=== PATIENT | female | born 1995 | race American Indian/Alaskan Native ===

== ENCOUNTER 2018-03-01 05:58 | Inpatient (IN) | payer MEDICAID ==
[2018-03-01] MEDS: IBUPROFEN PO SCH ×3 (06:12→21:26)
[2018-03-01] MEDS ORDERED: PITOCin/NS 20 UNIT/1000ML DRIP 20 UNITS/1,000 ML BAG IV SCH (07:00)
[2018-03-01] MEDS ORDERED: METHERGINE IM ONE ×2 (07:12→07:23)
[2018-03-01] MEDS ORDERED: BRETHINE SUB-Q PRN (07:20)
[2018-03-01] MEDS ORDERED: BRETHINE IVP PRN (07:20)
[2018-03-01] MEDS ORDERED: SUBLIMAZE IV PRN (07:20)
[2018-03-01] MEDS ORDERED: LACTATED RINGERS 1,000 ML IV SCH (08:00)
[2018-03-01 08:13] LABS: Hematocrit 29.5 % (30.3-42.9); Hemoglobin 9.7 gm/dl (10.1-14.3); Mean Corpuscular HGB Conc 33 % (30-34); Mean Corpuscular Volume 73 fl (79-97); Platelet Count 361 K/mm3 (140-440); Red Blood Count 4.06 M/mm3 (3.65-5.03)
[2018-03-01] MEDS ORDERED: ZOFRAN IV ONE (09:00)
--- NOTE | 2018-03-01 11:52 | History and Physical Report ---
History of Present Illness Date of admission: 03/01/18 05:58 Chief complaint: "I delivered my baby at home" History of present illness: 22yo at unknown gestation CAROLE presents to L&D by EMS (ambulance) after home delivery and delivery of placenta by EMS. She states once her contr actions started she tried to wait before coming to the hospital. Her baby was delivered at home by her family in the bed. Upon my entry into the room she had adequate bleeding ~50ml. A bi manual exam was done confirming firm uterus and no vaginal tears. She did complain of right inner thigh pain. Past History Past Surgical History: no surgical history - Obstetrical History : 3 Number of Living Children: 3 Medications and Allergies Allergies Allergy/AdvReac Type Severity Reaction Status Date / Time No Known Allergies Allergy Unverified 03/01/18 06:02 Active Meds: Active Medications Fentanyl (Sublimaze) 100 mcg IV Q2H PRN PRN Reason: Labor Pain Last Admin: 03/01/18 08:02 Dose: 100 mcg Documented by: Oxytocin/Sodium Chloride (Pitocin/Ns 20 Unit/1000ml Drip) 20 units in 1,000 mls @ 125 mls/hr IV DIRECT RUDY Last Admin: 03/01/18 08:06 Dose: 125 mls/hr Documented by: Lactated Ringer's (Lactated Ringers) 1,000 mls @ 125 mls/hr IV DIRECT RUDY Ibuprofen (Motrin) 600 mg PO Q6HR RUDY Last Admin: 03/01/18 06:12 Dose: 600 mg Documented by: Terbutaline Sulfate (Brethine) 0.25 mg SUB-Q ONCE PRN PRN Reason: Hyperstimulation/Hypertonicity Stop: 03/01/18 20:00 Terbutaline Sulfate (Brethine) 0.25 mg IVP ONCE PRN PRN Reason: Hyperstimulation/Hypertonicity Stop: 03/01/18 20:00 - Vital Signs Vital signs: Vital Signs Resp 18 03/01/18 06:12 Temp Pulse Resp BP Pulse Ox 98.9 F 82 20 112/69 96 03/01/18 09:27 03/01/18 09:27 03/01/18 09:27 03/01/18 09:27 03/01/18 09:27 - Physical Exam Vulva: both: normal Uterus: Positive: other (firm, below umbilicus) Extremities: Positive: normal Results Result Diagrams: 03/01/18 07:43 Abnormal lab results 03/01/18 Range/Units 07:43 WBC 18.2 H (4.5-11.0) K/mm3 Hgb 9.7 L (10.1-14.3) gm/dl Hct 29.5 L (30.3-42.9) % MCV 73 L (79-97) fl MCH 24 L (28-32) pg RDW 19.0 H (13.2-15.2) % All other labs normal. Assessment and Plan - Patient Problems (1) state Current Visit: Yes Status: Acute (2) (spontaneous vaginal delivery) Current Visit: Yes Status: Acute Plan to address problem: Call NICU to evaluate infant. Draw routine labs. Administer Pitocin for bleeding prophylaxis. Routine orders. Obtain medical records from primary OBGYN. (3) Anemia affecting Onset Date: Unknown Current Visit: Yes Status: Acute Plan to address problem: Bleeding well controlled. Discharge home on supplemental iron.
[2018-03-02] MEDS: IBUPROFEN PO SCH ×3 (03:25→11:09)
--- NOTE | 2018-03-02 11:33 | Progress Note ---
Assessment and Plan A: PPD#1 s/p (home Delivery) Asymptomatic anemia Stable Desires Discharge home Undecided on contraception P: Routine PP orders Discharge home today pending Peds Subjective - Subjective Date of service: 03/02/18 Principal diagnosis: PPD#1 s/p (home delivery) Interval history: See H&P. Pt delivered at home. Transfered to [facility] post delivery. Patient reports: appetite normal, voiding normally, pain well controlled, flatus, ambulating normally, no bowel movement : doing well, nursing well Objective - Vital Signs Latest vital signs: Vital Signs Temp Pulse Resp BP Pulse Ox 03/02/18 08:00 98.5 F 79 18 100/61 100 03/02/18 01:06 98.8 F 90 18 92/53 99 03/01/18 21:26 18 03/01/18 15:51 98.6 F 87 20 104/75 98 03/01/18 12:06 98.0 F 84 20 104/64 96 Intake and Output 03/01/18 03/02/18 03/02/18 23:59 07:59 15:59 Intake Total 480 360 Output Total 900 Balance -420 360 Intake: Oral 240 360 Intake, Free Water 240 Output: Urine 900 Void 900 Other: Total, Intake Amount 240 360 Total, Output Amount 900 # Voids Void 2 - Exam Breasts: Present: normal, Cardiovascular: Present: Regular rate, Normal S1, Normal S2, No murmurs Lungs: Present: Clear to auscultation, Normal air movement Abdomen: Present: normal appearance, soft, normal bowel sounds. Absent: distention Vulva: both: normal Uterus: Present: normal, firm, fundal height below umbilicus (-1) Extremities: Present: normal Deep Tendon Reflex Grade: Normal +2
--- NOTE | 2018-03-02 11:35 | Discharge Summary ---
Providers - Providers Date of Admission: 03/01/18 05:58 Date of discharge: 03/02/18 Attending physician: KERLINE ANDERSON MD Primary care physician: KERLINE ANDERSON MD Hospitalization Reason for admission: other (Delivered at home, [facility] post delivery) Delivery: Procedure details: See H&P and EMS records Episiotomy: none Laceration: none Other procedures: none complications: none Discharge diagnosis: IUP at term delivered baby: female Condition at discharge: Good Disposition: DC-01 TO HOME OR SELFCARE Plan - Provider Discharge Summary Activity: routine, no sex for 6 weeks, no heavy lifting 4 weeks, no strenuous exercise Diet: routine Instructions: routine Additional instructions: [] Smoking cessation referral if applicable(refer to patient education folder for contact #) [] Refer to [facility] Booklet Call your doctor immediately for: * Fever > 100.5 * Heavy vaginal bleeding ( >1 pad per hour) * Severe persistent headache * Shortness of breath * Reddened, hot, painful area to leg or breast * Drainage or odor from incision. * Keep incision clean and dry at all times and follow doctor's instructions regarding bathing/showering - Follow up plan Follow up: KERLINE ANDERSNO MD [Primary Care Provider] - 6 Weeks
[2018-03-02 17:47] VITALS: BP 109/68
== END 2018-03-02 17:13 | disposition home or self-care (01) | DRG 775 ==
LOC: LD 05:58 → OB 09:32
PROVIDERS: ADMIT Obstetrics & Gynecology; ATTEND Obstetrics & Gynecology
PROC: 10E0XZZ Delivery of Products of Conception, External Approach (ICD-10-PCS; principal; 2018-03-01)
DX: O90.81 Anemia of the puerperium (principal); D64.9 Anemia, unspecified
CPT/HCPCS: 36415; 85027; 86592; 86850; 86900; 86901; 88307; G0378; J2210; J2405; J2590; J3010